=== PATIENT | male | born 1965 ===

== ENCOUNTER 2020-06-05 17:38 | Outpatient (CLI) | payer BC ==
--- NOTE | 2020-06-05 18:57 | RAD ---
CHEST TWO VIEWS: History: Cough Comparison: None FINDINGS: There are faint perihilar and peripheral air space opacities. No pneumothorax. No effusion. No acute osseous abnormality. IMPRESSION: Mild Covid 19 pneumonia. POS: HOME
== END 2020-06-05 17:39 | disposition home or self-care (01) ==
LOC: SCSRAD 17:38
PROVIDERS: ATTEND Family Medicine
DX: U07.1 COVID-19 (principal); J12.82 Pneumonia due to coronavirus disease 2019
CPT/HCPCS: 71046